=== PATIENT | female | born 1980 | race Caucasian/White ===

== ENCOUNTER 2021-11-10 07:05 | Outpatient (CLI) | payer BC ==
[2021-11-10 09:15] LABS: Hemoglobin 13.7 g/dL (12.0-15.5); Mean Corpuscular HGB CONC 34.2 g/dL (32.0-36.0); Mean Corpuscular Hemoglobin 31.3 pg (27.0-33.0); Mean Corpuscular Volume 91.6 fl (81.6-98.3); Mean Platelet Volume 10.5 fl (7.4-10.4); Platelet Count 285 10x3/uL (150-450); RBC Distribution Width 13.9 % (11.5-14.5); Red Blood Cell (RBC) Count 4.38 10x6/uL (3.90-5.03); White Blood Cell (WBC) Count 7.2 10x3/uL (3.5-10.5)
[2021-11-10 09:22] LABS: BHCG - Serum Negative (NEGATIVE); Pregs Control Background? CLEAR/WHITE (CLR/WHITE); Pregs Control Bar Appear? YES (CONTROL BAR)
[2021-11-10 23:13] LABS: SARS-CoV-2 PCR by NAA Not Detected (NotDetected)
== END 2021-11-10 07:06 | disposition home or self-care (01) ==
LOC: CSHLAB 07:05
PROVIDERS: ATTEND Student in an Organized Health Care Education/Training Program
DX: Z01.812 Encounter for preprocedural laboratory examination (principal); Z20.822 Contact with and (suspected) exposure to COVID-19; R10.2 Pelvic and perineal pain
CPT/HCPCS: 84703; 85027; 86850; 86900; 86901; U0003; U0005

== ENCOUNTER 2021-11-15 08:22 | Day surgery (SDC) | payer BC ==
[2021-11-10 09:15] LABS: Hemoglobin 13.7 g/dL (12.0-15.5); Mean Corpuscular HGB CONC 34.2 g/dL (32.0-36.0); Mean Corpuscular Hemoglobin 31.3 pg (27.0-33.0); Mean Corpuscular Volume 91.6 fl (81.6-98.3); Mean Platelet Volume 10.5 fl (7.4-10.4); Platelet Count 285 10x3/uL (150-450); RBC Distribution Width 13.9 % (11.5-14.5); Red Blood Cell (RBC) Count 4.38 10x6/uL (3.90-5.03); White Blood Cell (WBC) Count 7.2 10x3/uL (3.5-10.5)
[2021-11-10 09:22] LABS: BHCG - Serum Negative (NEGATIVE); Pregs Control Background? CLEAR/WHITE (CLR/WHITE); Pregs Control Bar Appear? YES (CONTROL BAR)
[2021-11-10 13:56] VITALS: BMI 20.7
[2021-11-10 23:13] LABS: SARS-CoV-2 PCR by NAA Not Detected (NotDetected)
[2021-11-15] MEDS ORDERED: Gabapentin 300 MG CAP ONE (09:03)
[2021-11-15] MEDS ORDERED: Famotidine/PF 20 mg/2ml Vial ONE ×2 (09:04→09:53)
[2021-11-15] MEDS ORDERED: CeleCOXIB 100 MG CAP ONE (09:04)
[2021-11-15] MEDS ORDERED: Lidocaine 1% MPF 2 ML VIAL ONE (09:04)
[2021-11-15] MEDS ORDERED: Bupivacaine PF 0.5% 30 ML VIAL ONE (09:34)
[2021-11-15] MEDS ORDERED: EPINEPHrine 1 MG/ML AMP ONE (09:35)
[2021-11-15] MEDS ORDERED: Fentanyl 100 MCG/2 ML VIAL ONE ×3 (09:52→12:44)
[2021-11-15] MEDS ORDERED: PROPOFOL 20 ML ONE (09:52)
[2021-11-15] MEDS ORDERED: Rocuronium Bromide 10 MG/ML (10ML VIAL) ONE (09:54)
[2021-11-15] MEDS ORDERED: Ondansetron PF 4 MG/2 ML Vial ONE (09:54)
[2021-11-15] MEDS ORDERED: SUGAMMADEX SODIUM 200 MG/2 ML VIAL ONE (09:54)
[2021-11-15] MEDS ORDERED: Metoclopramide HCl 10 MG/2 ML VIAL ONE (09:54)
[2021-11-15] MEDS ORDERED: Dexamethasone 4 mg/ml Vial ONE (09:54)
[2021-11-15] MEDS ORDERED: Ketorolac Tromethamine 30 MG/ML VIAL ONE (09:55)
[2021-11-15] MEDS ORDERED: Lidocaine 2% PF 5 ML VIAL ONE (09:55)
[2021-11-15] MEDS ORDERED: ceFAZolin 2 GM/Dextrose 50 ML IVPB ONE (09:58)
[2021-11-15] MEDS ORDERED: Meperidine HCl/PF 25 MG/ML VIAL ONE (12:32)
== END 2021-11-15 14:40 | disposition home or self-care (01) ==
LOC: CSHSDC 08:22
PROVIDERS: ATTEND Student in an Organized Health Care Education/Training Program
PROC: 0UT94ZZ Resection of Uterus, Percutaneous Endoscopic Approach (ICD-10-PCS; principal; 2021-11-15)
PROC: 8E0W8CZ Robotic Assisted Procedure of Trunk Region, Via Natural or Artificial Opening Endoscopic (ICD-10-PCS; principal; 2021-11-15)
PROC: 0U5MXZZ Destruction of Vulva, External Approach (ICD-10-PCS; principal; 2021-11-15)
PROC: 0DQE4ZZ Repair Large Intestine, Percutaneous Endoscopic Approach (ICD-10-PCS; principal; 2021-11-15)
PROC: 0UT04ZZ Resection of Right Ovary, Percutaneous Endoscopic Approach (ICD-10-PCS; principal; 2021-11-15)
PROC: 0UT54ZZ Resection of Right Fallopian Tube, Percutaneous Endoscopic Approach (ICD-10-PCS; principal; 2021-11-15)
DX: N73.6 Female pelvic peritoneal adhesions (postinfective) (principal); N83.01 Follicular cyst of right ovary; N92.0 Excessive and frequent menstruation with regular cycle; D28.0 Benign neoplasm of vulva; J44.9 Chronic obstructive pulmonary disease, unspecified; F17.200 Nicotine dependence, unspecified, uncomplicated; Z79.899 Other long term (current) drug therapy; Z88.8 Allergy status to other drugs, medicaments and biological substances; Z98.51 Tubal ligation status
CPT/HCPCS: 84703; 85027; 86850; 86900; 86901; 88307; J0171; J0690; J1100; J1885; J2001; J2175; J2405; J2704; J2765; J3010; S0020; S0028; U0003; U0005

== ENCOUNTER 2021-11-29 09:41 | Emergency (ER) | payer BC ==
[2021-11-29 11:16] LABS: Bilirubin Neg (Negative); Blood, Urine 25 (Negative); Clarity Slightly Cloudy (Clear); Glucose, Urine (Dipstick) Normal (Negative); Ketone, Urine Negative (Negative); Leukocyte 100 (Negative); Nitrite Negative (Negative); Protein, Urine (Dipstick) 15 mg/dl (Neg-Trace); Specific Gravity, Urine 1.015 (1.002-1.036)
[2021-11-29 11:19] LABS: Pregnancy Test - Urine (BHCG) Negative (Negative); Pregu Control Background? CLEAR/WHITE (CLR/WHITE); Pregu Control Bar Appear? YES (CONTROL BAR); Specific Gravity 1.015 (1.002-1.036)
[2021-11-29 11:24] LABS: #Basophils 0.1 10x3/uL (0.0-0.2); #Eosinphils 1.1 10x3/uL (0.0-0.5); #Monocytes 0.6 10x3/uL (0.0-1.1); #Neutrophils 7.1 10x3/uL (1.5-8.4); %Basophils 1.1 % (0.0-2.0); %Eosinophils 10.3 % (0.0-6.0); %Lymphocytes 18.1 % (18.0-47.0); %Monocytes 5.7 % (0.0-10.0); %Neutrophils 64.4 % (40.0-75.0); Hemoglobin 13.3 g/dL (12.0-15.5); Mean Corpuscular HGB CONC 35.1 g/dL (32.0-36.0); Mean Corpuscular Hemoglobin 31.3 pg (27.0-33.0); Mean Corpuscular Volume 89.2 fl (81.6-98.3); Mean Platelet Volume 10.3 fl (7.4-10.4); Platelet Count 268 10x3/uL (150-450); RBC Distribution Width 13.5 % (11.5-14.5); Red Blood Cell (RBC) Count 4.25 10x6/uL (3.90-5.03)
[2021-11-29] MEDS ORDERED: Morphine 2 MG/ML VIAL ONE (11:26)
[2021-11-29] MEDS ORDERED: Ondansetron PF 4 MG/2 ML Vial ONE (11:26)
[2021-11-29] MEDS ORDERED: diphenhydrAMINE 50 MG/ML VIAL ONE (11:26)
[2021-11-29 11:29] LABS: RBC/HPF 0-3 HPF (0-3)
[2021-11-29 11:30] LABS: Bacteria/HPF 1+ HPF (None Seen)
[2021-11-29 11:42] LABS: ALT (SGPT) 12 U/L (8-55); AST (SGOT) 16 U/L (5-34); Albumin 4.2 g/dL (3.5-5.0); Alkaline Phosphatase 60 U/L (40-110); Anion Gap 13 mmol/L (10-20); BUN (Urea Nitrogen) 13 mg/dL (7.0-18.7); Bilirubin, Total 0.8 mg/dL (0.2-1.2); Calc. Creatinine Clearance 0 mL/min (70-130); Calcium 9.2 mg/dL (7.8-10.44); Carbon Dioxide 26 mmol/L (22-29); Chloride 104 mmol/L (98-107); Globulin 2.7 g/dL (2.4-3.5); Glucose 97 mg/dL (70-105); Lipase 32 U/L (8-78); Potassium 3.9 mmol/L (3.5-5.1); Protein, Total 6.9 g/dL (6.0-8.3); Sodium 139 mmol/L (136-145)
[2021-11-29] MEDS ORDERED: cefTRIAXone\\ROCEPHIN 1 GM VIAL ONE (12:03)
== END 2021-11-29 12:25 | disposition home or self-care (01) ==
LOC: CSHERS 09:41
DX: N39.0 Urinary tract infection, site not specified (principal); J44.9 Chronic obstructive pulmonary disease, unspecified
CPT/HCPCS: 74176; 80053; 81003; 81015; 81025; 83605; 83690; 85025; 96365; 96375; J0696; J1200; J2270; J2405

== ENCOUNTER 2021-12-06 10:04 | Observation (INO) | payer BC ==
[2021-12-06 10:53] VITALS: BMI 20.5
[2021-12-06] MEDS ORDERED: Fentanyl 100 MCG/2 ML VIAL SLOW IVP PRN ×2 (10:55→10:57)
[2021-12-06] MEDS ORDERED: Ketorolac Tromethamine 30 MG/ML VIAL IVP PRN (10:55)
[2021-12-06] MEDS ORDERED: Ondansetron PF 4 MG/2 ML Vial IVP PRN (10:55)
[2021-12-06] MEDS ORDERED: Piperacillin/Tazobactam 3.375 GM in Sodium Chloride 0.9% 100 ML IVPB SCH ×3 (11:00→18:00)
[2021-12-06 11:34] LABS: #Basophils 0.1 10x3/uL (0.0-0.2); #Eosinphils 0.8 10x3/uL (0.0-0.5); #Monocytes 0.6 10x3/uL (0.0-1.1); #Neutrophils 6.1 10x3/uL (1.5-8.4); %Basophils 0.7 % (0.0-2.0); %Eosinophils 8.1 % (0.0-6.0); %Lymphocytes 20.9 % (18.0-47.0); %Monocytes 6.7 % (0.0-10.0); %Neutrophils 63.1 % (40.0-75.0); Hemoglobin 12.7 g/dL (12.0-15.5); Mean Corpuscular Hemoglobin 30.5 pg (27.0-33.0); Mean Corpuscular Volume 89.7 fl (81.6-98.3); Mean Platelet Volume 9.9 fl (7.4-10.4); Platelet Count 361 10x3/uL (150-450); RBC Distribution Width 13.6 % (11.5-14.5); Red Blood Cell (RBC) Count 4.16 10x6/uL (3.90-5.03); White Blood Cell (WBC) Count 9.6 10x3/uL (3.5-10.5)
[2021-12-06 11:49] LABS: ALT (SGPT) 14 U/L (8-55); AST (SGOT) 18 U/L (5-34); Albumin 4.1 g/dL (3.5-5.0); Alkaline Phosphatase 66 U/L (40-110); Anion Gap 14 mmol/L (10-20); BUN (Urea Nitrogen) 10 mg/dL (7.0-18.7); Bilirubin, Total 0.6 mg/dL (0.2-1.2); Calc. Creatinine Clearance 92 mL/min (70-130); Carbon Dioxide 26 mmol/L (22-29); Chloride 104 mmol/L (98-107); Globulin 2.7 g/dL (2.4-3.5); Glucose 82 mg/dL (70-105); Potassium 4.3 mmol/L (3.5-5.1); Protein, Total 6.8 g/dL (6.0-8.3); Sodium 140 mmol/L (136-145)
[2021-12-06] MEDS ORDERED: Lactated Ringer's 1,000 ML IV SCH (12:15)
[2021-12-06 12:21] LABS: SARS-CoV-2 NAA Rapid Test Not Detected (NotDetected)
[2021-12-06] MEDS ORDERED: Acetaminophen 500 MG TAB PO PRN (16:54)
[2021-12-06] MEDS ORDERED: Ibuprofen 800 MG TAB PO PRN (16:54)
[2021-12-06] MEDS ORDERED: Saccharomyces boulardii 250 MG CAP PO SCH (17:00)
[2021-12-06] MEDS: HYDROcodone/Acetaminophen 5/325 mg Tablet PO PRN (20:42)
[2021-12-06] MEDS ORDERED: Piperacillin/Tazobactam 3.375 GM VIAL ONE (23:58)
[2021-12-06] MEDS: Piperacillin/Tazobactam 3.375 GM in Sodium Chloride 0.9% 100 ML IVPB SCH (23:59)
[2021-12-07] MEDS: Piperacillin/Tazobactam 3.375 GM in Sodium Chloride 0.9% 100 ML IVPB SCH (06:57)
[2021-12-07] MEDS: HYDROcodone/Acetaminophen 5/325 mg Tablet PO PRN (07:19)
[2021-12-07] MEDS ORDERED: Saccharomyces boulardii 250 MG CAP PO SCH (09:00)
[2021-12-07] MEDS ORDERED: Estradiol 0.1mg/24 Hour Patch (Weekly) TD SCH (09:52)
[2021-12-07 11:31] VITALS: BP 142/76; TEMP 97.8
[2021-12-07] MEDS ORDERED: metroNIDAZOLE 500 MG TAB PO SCH (15:00)
[2021-12-07] MEDS ORDERED: Ciprofloxacin 500 MG TAB PO SCH (20:00)
== END 2021-12-07 12:20 | disposition home or self-care (01) ==
LOC: CSHPP 10:44 → INTOOBSV 10:44
PROVIDERS: ADMIT Student in an Organized Health Care Education/Training Program; ATTEND Student in an Organized Health Care Education/Training Program
DX: N76.4 Abscess of vulva (principal); A04.72 Enterocolitis due to Clostridium difficile, not specified as recurrent; K65.9 Peritonitis, unspecified; Z79.3 Long term (current) use of hormonal contraceptives; Z79.899 Other long term (current) drug therapy; Z88.5 Allergy status to narcotic agent; Z88.8 Allergy status to other drugs, medicaments and biological substances; Z90.710 Acquired absence of both cervix and uterus; Z90.79 Acquired absence of other genital organ(s); Z90.722 Acquired absence of ovaries, bilateral; Z20.822 Contact with and (suspected) exposure to COVID-19
CPT/HCPCS: 36415; 74177; 80053; 85025; 87324; 87449; 96365; 96375; 96376; G0378; J1885; J2543; J3010; J3490; J7120; U0002